=== PATIENT | male | born 1975 | race Caucasian/White ===

== ENCOUNTER 2019-10-27 12:12 | Emergency (ER) | payer OTHER, SELFPAY ==
[2019-10-27 12:40] VITALS: BP 158/89; PULSE 79; RESP 16; TEMP 36.6; O2SAT 97; BMI 38.6
== END 2019-10-27 13:07 | disposition left against medical advice (07) ==
LOC: ER 12:32
PROVIDERS: Emergency Provider Emergency Medicine
DX: Z53.21 Procedure and treatment not carried out due to patient leaving prior to being seen by health care provider (principal)
CPT/HCPCS: 99281

== ENCOUNTER 2021-01-08 11:45 | Emergency (ER) | payer OTHER, SELFPAY ==
[2021-01-08] VITALS (7 sets, daily range): BP systolic 147–180; BP diastolic 99–111; PULSE 66–70; RESP 14–18; O2SAT 22–97; BMI 39.9
--- NOTE | 2021-01-08 12:27 | XRR_ITS ---
PROCEDURE INFORMATION: Exam: XR Right Ribs with PA Chest Exam date and time: 01/08/2021 1:25 PM Age: 45 years old Clinical indication: Pain; Other: RT ribs; Additional info: Rib pain right TECHNIQUE: Imaging protocol: XR Right ribs with PA chest. Views: 3 views COMPARISON: No relevant prior studies available. FINDINGS: Lungs: Unremarkable. No consolidation. Pleural spaces: Unremarkable. No pleural effusion. No pneumothorax. Heart/Mediastinum: Unremarkable. No cardiomegaly. Bones/joints: Unremarkable. XR/XR ribs RT mn 3V w CXR1V [id number] IMPRESSION: No acute findings.
--- NOTE | 2021-01-08 12:31 | W.ED.GENADLT ---
HPI - General Adult General: Chief complaint: General Medical Stated complaint: COUGHED, FELT POP IN R SIDE Time Seen by Provider: 01/08/21 12:21 History of Present Illness: HPI narrative: The patient is a 45-year-old male with past medical history COPD who comes to the ER complaining of right lower rib pain after he coughed this morning. He says he has been having slight pain there over the past week and went to the [facility] where they took x-rays and he has no results. This morning he had his normal COPD/smoker cough and heard a loud pop in the area he is having pain and now complains of severe pain to the area. He has been taking Tylenol and ibuprofen. Onset (ago): week(s) (1) Radiation: non-radiation Severity: moderate Quality: sharp Pain Consistency: constant Relieving factors: none Exacerbating factors: other (Deep breaths and coughing) Associated symptoms: Reports cough (Chronic COPD cough); Deny chest pain, confusion, dyspnea, headache(s), rash, short of breath or weakness Review of Systems General: Reports: 10 or more systems reviewed and unremarkable except in HPI and below Const: Denies: fatigue Eyes: Denies: change in vision, blurry vision or eye redness ENMT: Denies: throat pain, swelling of lips/tongue, ear or mastoid pain or nasal congestion Card: Denies: chest pain Resp: Denies: dyspnea GI: Denies: abdominal pain, diarrhea or GI cramping : Denies: flank pain, urinary frequency or urinary urgency Musc: Denies: neck pain, back pain, extremity pain, joint pain, joint redness, limited range of motion or muscle weakness Skin/Breast: Denies: rash, pruritus, erythema, skin pain or skin tenderness Neuro: Denies: headache(s), numbness in extremities, weakness in extremities, sensory changes, difficulty walking, dizziness, confusion or Slurred speech present Psych: Denies: anxiety or depression Endo: Denies: polyuria All/Imm: Denies: urticaria, throat swelling or tongue swelling PFSH ED PFSH: Social History Smoking and tobacco status: former smoker Physical Exam Const: COMMON NORMALS: no acute distress, average body habitus, patient oriented x3, no limitations, healthy appearing, alert and well nourished GENERAL APPEARANCE: cooperative, comfortable, well kempt and well developed ORIENTATION/CONSCIOUSNESS: Yes awake, Yes oriented to person, Yes oriented to place and Yes oriented to time HENMT: COMMON NORMALS: normocephalic, external ears normal and Normal external nose present HEAD & SCALP: normal to inspection and normocephalic NOSE: Normal external nose present EXTERNAL EAR: Yes external ears normal MOUTH: Normal oral and palatal mucosa present THROAT: posterior oropharynx normal Eye: COMMON NORMALS: Equal, round and reactive pupils present and EOMs intact bilaterally GENERAL EYE: appearance normal, both eyes and all related structures PUPIL: Yes Equal, round and reactive pupils present Neck/C-Spine: COMMON NORMALS: full ROM, no lymphadenopathy, no meningeal signs and no JVD GENERAL: Yes normal visual inspection Lymph: LYMPHATIC: no lymphadenopathy noted Chest: COMMONS NORMALS: normal inspection of the chest and normal palpation of entire chest wall Chest images (male): 1. Tenderness to area of right 10th rib and surrounding musculature. Resp: COMMON NORMALS: normal respiratory effort, No retractions, No use of accessory muscles, clear to auscultation bilaterally and percussion normal EFFORT & INSPECTION: Yes able to speak in complete sentences AUSCULTATION: clear to auscultation bilaterally PERCUSSION: percussion normal Cardio: COMMON NORMALS: no JVD, regular rate, regular rhythm, S1 normal heart sound present, S2 normal heart sound present and Peripheral pulses 2+ throughout RATE: regular rate RHYTHM: regular rhythm HEART SOUNDS: S1 normal heart sound present and S2 normal heart sound present PERIPHERAL PULSES: Peripheral pulses 2+ throughout GI: COMMON NORMALS: Normal to inspection, nondistended, normoactive bowel sounds present, Soft to palpation, non-tender and no masses INSPECTION: Yes normal to inspection PALPATION: Yes Soft to palpation : COMMON NORMALS: Yes no CVA tenderness BLADDER/KIDNEY EXAM: Yes no CVA tenderness Back/Pelvis: COMMON NORMALS: no CVA tenderness, thoracic and lumbar spine normal to inspection, no thoracic nor lumbar tenderness and thoraco-lumbar ROM normal Extremity: COMMON NORMALS: normal to inspection, full ROM, capillary refill normal, no joint enlargement and no pedal edema GENERAL: Yes normal exam except as noted Neuro: COMMON NORMALS: patient oriented x3, CN's II-XII intact bilaterally, moves all extremities, no focal motor deficits, no sensory deficits noted and gait normal SENSORIUM/ORIENTATION: Yes alert, Yes oriented to person, Yes oriented to place and Yes oriented to time MENINGEAL SIGNS: Yes no meningeal signs Psych: COMMON NORMALS: mental status grossly normal, Normal thought process present, cooperative, normal affect and speech normal APPEARANCE: Yes well kempt ATTITUDE: Yes calm SPEECH: Yes normal speech THOUGHT PROCESS: Normal thought process present Skin: COMMON NORMALS: no rashes or lesions noted GENERAL SKIN EXAM: no rashes or lesions noted Course Vital Signs: Vital signs: Vital Signs Pulse Rate 70 01/08/21 14:30 Respiratory Rate 14 01/08/21 14:30 Blood Pressure 147/99 01/08/21 14:30 Pulse Oximetry 97 01/08/21 14:30 MDM - General Adult MDM Narrative: Medical decision making narrative: Patient likely has a muscle strain from his chronic coughing related to smoking and COPD. X-rays are negative for fracture. Okay to discharge with Flexeril. Follow-up with primary care physician in 1 week. ER with worsening symptoms Discharge Plan Discharge Patient Disposition: Home Clinical Impression: Muscle strain Condition: Stable Prescriptions: New cyclobenzaprine 5 mg tablet 5 mg PO TID PRN (Reason: muscle spasm) Qty: 12 RF: 0 No Action metoprolol tartrate 50 mg Tablet 25 mg PO BID RF: 0 nicotine 21 mg/24 hr Patch 24 Hour 1 patch TRANSDERMAL DAILY RF: 0 albuterol sulfate 90 mcg/actuation Hfa Aerosol Inhaler 2 puff INHALATION QID PRN (Reason: COPD) RF: 0 Charity 1 tab PO DAILY PRN (Reason: Allergy Symptoms) RF: 0 Tylenol 325 mg Tablet 325 - 650 mg PO Q6H PRN (Reason: PAIN/HEADACHE) RF: 0 ibuprofen 200 mg Tablet 200 mg PO Q6H PRN (Reason: PAIN/HEADACHE) RF: 0 Discharge Orders: Discharge ED (Routine); Ordered 01/08/21 Ordered By: Maximo Gonzalez Referrals: Dot Dai FNP [Primary Care Provider] - Discharge Diet: Advance as tolerated Discharge Activity: Resume usual activity Patient Instructions: Musculoskeletal Pain (ED), Opioid Safety Activity Restrictions/Additional Instructions: You are likely having muscular pain from coughing. Please take the muscle relaxer as needed to help with your pain. Do not mix it with drugs, alcohol, nor operate machinery while taking it. If you take it before bedtime it may help you sleep. Also continue to take Tylenol at home to help with your pain. Return to the ER with worsening symptoms otherwise follow-up with your primary care physician this week. Coding Level of Care Code ED Power Screwdriver Operator for Chuck Fwd Exam Comprehensive
[2021-01-08] MEDS: orphenadrine 30 mg/mL Inj 2 mL 60 MG IM (12:35)
[2021-01-08] MEDS: albuterol 8 gm MDI 2 PUFF INHALATION (12:56)
== END 2021-01-08 15:35 | disposition home or self-care (01) ==
LOC: ER 12:28
PROVIDERS: Emergency Provider Family Medicine; PCP Nurse Practitioner
DX: S39.011A Strain of muscle, fascia and tendon of abdomen, initial encounter (principal); X50.9XXA Other and unspecified overexertion or strenuous movements or postures, initial encounter; Z87.891 Personal history of nicotine dependence
CPT/HCPCS: 71101; 94640; 96372; 99283; J2360; J3535

== ENCOUNTER 2022-06-23 09:33 | Emergency (ER) | payer OTHER, SELFPAY ==
[2022-06-23 09:39] VITALS: BP 143/84; PULSE 81; RESP 18; TEMP 36.7; O2SAT 96; BMI 35.2
--- NOTE | 2022-06-23 09:57 | XRR_ITS ---
PROCEDURE INFORMATION: Exam: XR Right Ankle Exam date and time: 06/23/2022 10:12 AM Age: 46 years old Clinical indication: Injury or trauma; Fall; Blunt trauma; Ankle; Right TECHNIQUE: Imaging protocol: Radiologic exam of the Right ankle. Views: 3 or more views. COMPARISON: No relevant prior studies available. FINDINGS: Bones/joints: There is transverse displaced fracture of the medial malleolus. There is longitudinal displaced fracture of the posterior malleolus. The lateral malleolus appears intact the potential for a proximal fibular fracture should be ruled out. Soft tissues: Soft tissue edema is seen in the medial aspect of the ankle XR/XR ankle RT min 3V* [id number] IMPRESSION: 1. Transverse displaced fracture of the medial malleolus. 2. Longitudinal displaced fracture posterior malleolus 3. Rule out proximal fibular fracture 4. Soft tissue edema medial ankle
--- NOTE | 2022-06-23 09:58 | W.ED.EXTPRO ---
HPI - Extremity Problem General: Chief complaint: Extremity Injury, Lower Stated complaint: Swollen right feet Time Seen by Provider: 06/23/22 09:54 History of Present Illness: 46 yo male patient presents to ER with right ankle injury. Patient states he twisted his ankle stepping off of porch last night woke up to pain and swelling today. Patient denies any other injury or trauma. Associated symptoms: Deny fever(s) or rash Review of Systems Const: Denies: fever(s) Musc: Reports: extremity pain and extremity swelling Skin/Breast: Denies: rash, pruritus or erythema PFSH ED PFSH: Social History Smoking and tobacco status: former smoker Physical Exam Const: COMMON NORMALS: no acute distress, average body habitus, patient oriented x3, no limitations, healthy appearing, alert and well nourished Cardio: COMMON NORMALS: regular rate and regular rhythm RATE: regular rate RHYTHM: regular rhythm Extremity: RIGHT LOWER EXTREMITY: Yes foot & digits (swelling noted to lateral and medial aspects tender to palpation NVI) Neuro: COMMON NORMALS: patient oriented x3 SENSORIUM/ORIENTATION: Yes alert Course Vital Signs: Vital signs: Vital Signs Temperature 98.0 F 06/23/22 09:39 Pulse Rate 81 06/23/22 09:39 Respiratory Rate 18 06/23/22 09:39 Blood Pressure 143/84 06/23/22 09:39 Pulse Oximetry 96 06/23/22 09:39 Oxygen Delivery Me thod 06/23/22 09:39 MDM - Extremity (Nontraumatic) Medical Decision Making Patient is well appearing non toxic and in no acute distress. there is edema and tenderness to lateral and medial aspects of right ankle. Pt is NVI distally. there is no calf edema or tenderness noted. Will order xray at this time. Pt does have a medial malleoulus fracture. will splint and give crutches and pain meds and have follow up with ortho. pt remains NVI distally post splint application Lab Data Radiology Impressions Ankle X-Ray 06/23/22 09:57 IMPRESSION: 1. Transverse displaced fracture of the medial malleolus. 2. Longitudinal displaced fracture posterior malleolus 3. Rule out proximal fibular fracture 4. Soft tissue edema medial ankle Discharge Plan Discharge Patient Disposition: Home Condition: Stable Prescriptions: No Action metoprolol tartrate 50 mg Tablet 25 mg PO BID nicotine 21 mg/24 hr Patch 24 Hour 1 patch TRANSDERMAL DAILY albuterol sulfate 90 mcg/actuation Hfa Aerosol Inhaler 2 puff INHALATION QID PRN (Reason: COPD) Charity 1 tab PO DAILY PRN (Reason: Allergy Symptoms) Tylenol 325 mg Tablet 325 - 650 mg PO Q6H PRN (Reason: PAIN/HEADACHE) ibuprofen 200 mg Tablet 200 mg PO Q6H PRN (Reason: PAIN/HEADACHE) cyclobenzaprine 5 mg tablet 5 mg PO TID PRN (Reason: muscle spasm) Qty: 12 0RF Discharge Orders: Discharge ED (Routine); Ordered 06/23/22 Ordered By: Ana Paula Mercado Referrals: Dot aDi FNP [Primary Care Provider] - Discharge Diet: Advance as tolerated Discharge Activity: Use walker/crutches as instructed Patient Instructions: Opioid Safety Activity Restrictions/Additional Instructions: Please no weight bearing and use crutches Please no driving or operating heavy machinery while taking norco Please follow up with Ortho, we will call with appointment information Rest, Ice and elevate extremity Return to ER with any worsening of symptoms Coding Level of Care Code ED Sr. Pricing Analyst for Chuck Fwabilio Exam Expanded Problem Focused
[2022-06-23] MEDS: HYDROcodone-acetaminophen 5-325 mg Tablet 2 TAB PO (10:42)
[2022-06-23 11:33] VITALS: BP 145/78; PULSE 85; RESP 14; O2SAT 98
--- NOTE | 2022-06-26 12:41 | DCPLANNER ---
Addendum entered by Janell Alejandro 06/28/22 07:42: Patient had a follow up appointment scheduled for 06.27.[address] Parr at ortho - patient did attend appointment. Original Note: marina manager had message to schedule a follow up appointment for patient with ortho. marina manager sent patients information to the front office staff at ortho. Patients information will be printed and reviewed. Clinic will call patient with appointment information.
== END 2022-06-23 11:37 | disposition home or self-care (01) ==
PROVIDERS: Emergency Provider Registered Nurse; PCP Nurse Practitioner
DX: S82.51XA Displaced fracture of medial malleolus of right tibia, initial encounter for closed fracture (principal); Z87.891 Personal history of nicotine dependence; X50.1XXA Overexertion from prolonged static or awkward postures, initial encounter
CPT/HCPCS: 73610; 99283; E0114

== ENCOUNTER → 2022-06-27 15:16 | Outpatient (BNVA) | payer OTHER, SELFPAY | PROVIDERS: PCP Nurse Practitioner; Referring Provider Registered Nurse; Visit Provider Specialist | DX: S82.851A Displaced trimalleolar fracture of right lower leg, initial encounter for closed fracture (principal); S93.431A Sprain of tibiofibular ligament of right ankle, initial encounter; X58.XXXA Exposure to other specified factors, initial encounter | CPT/HCPCS: 73590; 73610; 99204 ==

== ENCOUNTER → 2022-07-02 11:39 | Outpatient (BNVA) | payer OTHER, SELFPAY | PROVIDERS: PCP Nurse Practitioner; Visit Provider Specialist | DX: X58.XXXA Exposure to other specified factors, initial encounter (principal); S82.851A Displaced trimalleolar fracture of right lower leg, initial encounter for closed fracture; S93.431A Sprain of tibiofibular ligament of right ankle, initial encounter | CPT/HCPCS: 73610 ==

== ENCOUNTER 2022-07-02 14:54 | Outpatient (CLI) | payer OTHER, SELFPAY | END 2022-07-02 14:55 | disposition home or self-care (01) | LOC: SPT 14:54 | PROVIDERS: PCP Nurse Practitioner; Visit Provider Specialist | DX: S82.851D Displaced trimalleolar fracture of right lower leg, subsequent encounter for closed fracture with routine healing (principal); X58.XXXD Exposure to other specified factors, subsequent encounter | CPT/HCPCS: 97760; 99214; L4361 ==

== ENCOUNTER → 2022-07-03 12:04 | Day surgery (SDC) | payer OTHER, SELFPAY ==
[2022-07-02 18:19] VITALS: BMI 35.9
[2022-07-03] VITALS (11 sets, daily range): BP systolic 131–156; BP diastolic 85–93; PULSE 60–73; RESP 12–19; TEMP 36.6–36.8; O2SAT 93–99
--- NOTE | 2022-07-03 | XR_ITS ---
WS: [id number] XR ankle RT 2V [id number] REASON FOR EXAM: orif right ankle with stress views FINDINGS: Intraoperative images demonstrate plate and screw fixation of transverse medial malleolar fracture. Fracture fragments and surgical appliances are in proper position and alignment. The stress view does not reveal a lateral ankle instability. XR/XR ankle RT 2V [id number] IMPRESSION: Fixation of medial malleolar fracture without abnormality.
--- NOTE | 2022-07-03 | SCC_ITS ---
Procedure done: Open reduction internal fixation right medial malleolar fragment with no fixation of posterior malleolar fracture. 36.9 seconds of fluoroscopic guidance, for a cumulative dose of 1.11 mGy, was provided to Dr. Parr by the radiology department. C-arm images of the RIGHT ankle were saved for the patient's permanent record. [facility]
--- NOTE | 2022-07-03 12:45 | P.ANESASSM_ITS ---
Pre-Anesthetic Assessment Height/Weight: Height 1.83 m Weight 120.202 kg Temp Pulse Resp BP Pulse Ox O2 Del Method 97.9 F 60 16 131/93 96 07/03/22 12:43 07/03/22 12:43 07/03/22 12:43 07/03/22 12:43 07/03/22 12:43 07/03/22 12:43 Preop Diagnosis: Trimalleolar right ankle fracture with syndesmotic disruption Operation Date: 07/03/22 14:05 Proposed Procedures p OPEN REDUCTION INTERNAL FIXATION RIGHT TRIMALLELOUR FRACTURE WITH POSSIBLE SYNDOSMATIC FIXATION 37702 [id number],S82.491B(Right) - Natividad Parr MD Familial anesthetic complications: none Was Beta Tarik taken within 24 hours: N/A Was Clonidine taken within 24 hours: N/A Last intake: 07/02/22 Social Tobacco and No alcohol Exam alert, oriented x 3, clear to auscultation bilaterally and regular rate & rhythm Airway Submandibular: within normal limits Cervical ROM: within normal limits Mallampati: Class III Comments: Comments: Missing multiple teeth Pulmonary Sleep Apnea CV/HEM Coronary Artery Disease (S/P 1 stent over 10 years ago ) and Myocardial Infarction Able to go up 3 flights of stairs w/o CP or SOB None reported Hepatic None reported GI None reported Metabolic None reported Musc/skel Osteoarthritis/DJD Right ankle syndesmotic disruption Neuropsych None reported Anesthetic Plan ASA status: 3 Anesthesia: Anesthesia Evaluation, General and Regional (specify below) (Popliteal and adductor canal blocks) Other: We discussed risk and benefits of general anesthesia including PONV, sore throat (sometimes severe), corneal abrasion, positioning and peripheral nerve injuries, life threatening allergic reaction, post operative ICU admission requiring prolonged intubation, aspiration, stroke, heart attack, , and rare incidences of recall. Patient consents to proceed with general anesthesia. We discussed risk and benefits of nerve block for post op pain control including management of pain and titration of pain medications as signs/symptoms of nerve block wearing off begin to appear and/or prior bed. We discussed risk of failed nerve block, vascular injury or other vital structure injury, abscess/infection, LAST, and nerve injury. Discussed nerve block with Doctor Parr who felt the risk of compartment sy ndrome was low. Plan general with popliteal and adductor canal blocks for post op pain control. Risk of > 500 ml blood loss (7ml/kg in children): No Medications/Allergies Home Medications Medication Instructions Recorded Confirmed Last Taken Type Charity 1 tab PO DAILY PRN Allergy Symptoms 01/08/21 07/03/22 06/30/22 History acetaminophen 325 mg tablet 325 - 650 mg PO Q6H PRN 01/08/21 07/03/22 07/02/22 History (Tylenol) PAIN/HEADACHE albuterol sulfate 90 mcg/actuation 2 puff inhalation QID PRN COPD 01/08/21 07/03/22 07/02/22 20:00 History aerosol inhaler ibuprofen 200 mg tablet 200 mg PO Q6H PRN PAIN/HEADACHE 01/08/21 07/03/22 07/02/22 22:00 History metoprolol tartrate 50 mg tablet 25 mg PO BID 01/08/21 07/03/22 07/03/22 09:00 History nicotine 21 mg/24 hr daily 1 patch transdermal DAILY PRN 01/08/21 07/02/22 Unknown History transdermal patch Agitation Walking Cam Boot #1 ea 07/02/22 07/02/22 Unknown Rx atorvastatin 20 mg tablet 20 mg PO DAILY 07/02/22 07/03/22 07/02/22 History tramadol 50 mg tablet 50 mg PO TID PRN Pain 07/02/22 07/03/22 07/02/22 22:00 History Allergies Allergy/AdvReac Type Severity Reaction Status Date / Time morphine Allergy ADR-Itching Verified 07/02/22 18:14 [facility] Anesthesia Social History Smoking and tobacco status: current every day smoker Data Anesthesia Cardiac Studies: No Data to Display
[2022-07-03] MEDS: sodium chloride 0.9% 1,000 ML 30 ML IV (13:25)
[2022-07-03] MEDS: gabapentin 300 mg Capsule 600 MG PO (13:30)
[2022-07-03] MEDS: CELEcoxib 200 mg Capsule 400 MG PO (13:30)
[2022-07-03] MEDS: fentaNYL 50 mcg/mL INJ 2mL IVP (13:40)
[2022-07-03] MEDS: acetaminophen 1,000 MG/100 ML PIGGYBACK 400 MG IV (14:05)
[2022-07-03] MEDS: ipratropium-albuterol 3 mL Neb INHALATION (14:05)
--- NOTE | 2022-07-03 14:23 | SUR.PREOP ---
13:40 placed on O2, and monitor. time out done. IV PAIN MED GIVEN . NERVE BLOCK PERFORMED. PATIENT TOLERATED WELL.
--- NOTE | 2022-07-03 14:31 | P.HPUD_ITS ---
Surgery/Procedure H&P Update DATE OF PROCEDURE: July 03, 2022 DATE H&P PERFORMED: 07/02/22 H&P UPDATE INFORMATION: I have reviewed H&P completed within last 30 days, I have examined patient prior to procedure, No changes to prior documentation and H&P is in [facility] EMR on date indicated PREOP DIAGNOSIS: Trimalleolar right ankle fracture with syndesmotic disruption PLANNED PROCEDURE: Operation Date: 07/03/22 14:05 Proposed Procedures p OPEN REDUCTION INTERNAL FIXATION RIGHT TRIMALLELOUR FRACTURE WITH POSSIBLE SYNDOSMATIC FIXATION 54465 [id number],S82.853B(Right) - Natividad Parr MD Related Problem List Diagnoses (1) Trimalleolar fracture of right ankle: Qualifiers: Encounter type: initial encounter Fracture type: closed Qualified Code(s): S82.851A - Displaced trimalleolar fracture of right lower leg, initial encounter for closed fracture (2) Syndesmotic disruption of right ankle: Qualifiers: Encounter type: initial encounter Qualified Code(s): S93.431A - Sprain of tibiofibular ligament of right ankle, initial encounter
[2022-07-03] MEDS: ceFAZolin 2,000 MG in sodium chloride 0.9% (plus) 50 ML 100 MG IV (14:44)
[2022-07-03] MEDS: ceFAZolin 1,000 mg SDV 1000 MG IRRIGATION (15:44)
--- NOTE | 2022-07-03 15:47 | ANES.PROC ---
Anesthesia Procedures Procedure/Date: 07/03/22 Nerve Block ^: Nerve Block 1: Main Anesthesia: general anesthesia Time Out Performed: Yes Consent: requested by attending/covering physician, from patient, risks and benefits reviewed and patient agrees to proceed Nerve block location: popliteal Anesthesia monitors applied: pulse oximetry, EKG, BP cuff and oxygen Nerve block position: semi sitting Anesthetic Used: ropivicaine 0.5% Amount of anesthesia used (mL): 20 Ultrasound used to: recognize landmarks and other (visualize and ID popliteal nerve) Nerve Stimulator Used?: No Interscalene/Femoral BLK: 4 stimuplex 21 g needle used for position and inplane approach, visualize local anesthetic spread and no vascular puncture identified Injection: neg aspiration of heme Patient Tolerated Procedure: well Complications: none Additional Comments: After time out sterile prep, using sterile technique, and using real time US guidance for target selection needle was inserted with real time visualization of needle entry and real time visualization of needle advancement toward intended target. Negative aspiration. LA injected incrementally with negative aspiration every 5 cc and real time US visualization of LA spread throughout procedure. Tolerated well. Image(s) saved. Nerve Block 2: Main Anesthesia: general anesthesia Time Out Performed: Yes Consent: requested by attending/covering physician, from patient, risks and benefits reviewed and patient agrees to proceed Nerve block location: adductor canal Anesthesia monitors applied: pulse oximetry, EKG, BP cuff and oxygen Nerve block position: supine Anesthetic Used: ropivicaine 0.5% Amount of anesthesia used (mL): 15 Ultrasound used to: recognize landmarks and visualize and ID femerol nerve Nerve Stimulator Used?: No Interscalene/Femoral BLK: 4 stimuplex 21 g needle used for position and inplane approach, visualize local anesthetic spread and no vascular puncture identified Injection: neg aspiration of heme Patient Tolerated Procedure: well Complications: none Additional Comments: After time out sterile prep, using sterile technique, and using real time US guidance for target selection needle was inserted with real time visualization of needle entry and real time visualization of needle advancement toward intended target. Negative aspiration. LA injected incrementally with negative aspiration every 5 cc and real time US visualization of LA spread throughout procedure. Tolerated well. Image(s) saved.
--- NOTE | 2022-07-03 16:45 | P.OP_ITS ---
Operative Report Date of procedure: July 03, 2022 Pre-op diagnosis: Trimalleolar right ankle fracture Post-op diagnosis: Bimalleolar right ankle fracture Post-op findings: Displaced right medial malleolar ankle fracture without syndesmotic disruption, but with posterior malleolar fracture, stress testing of syndesmotic ligament negative Procedure done: Open reduction internal fixation right medial malleolar fragment with no fixation of posterior malleolar fracture. Implants: The Trubates large short plate with a combination of locking and nonlocking screws. Specimens removed/disposition: None Surgeon: Natividad Parr Assistant Loan Processor: [facility] operating room technicians Anesthesia: General (Per LMA, ASA 2) Estimated blood loss (mL): 2 Tourniquet time (min): 58 (At 250 mmHg) IV fluids (mL): 400 Urine output (mL): 0 (No Zambrano) Complications: None Findings: Displaced medial malleolar fragment with interposed periosteum, posterior malleolar fracture which reduced nicely. Negative stress test to syndesmotic ligament. No obvious unstable distal fibula fracture. Condition: stable Disposition: PACU (Then to same-day surgery for discharge home with family.) Brief History: This is a 46 year old male patient who presented to my office with a medial malleolar fracture with displacement and apparent mortise widening. He returned after his first visit to the office as he was quite swollen, and then he was prepared for surgical intervention as the swelling had diminished. DOI: 06/22/2022. Patient presented to the E.R. the following day. Patient had xrays taken and was placed in a splint. Patient informed to utilize crutches and not to bear weight on the ankle. Patient states that he has been walking on the ankle initially, but after we met the first time, he became nonweightbearing. He was scheduled for surgical intervention. Questions were answered and consents were signed preoperatively. Procedure: Patient was seen in the preoperative holding area and leg was marked. Patient was brought to the operating theater and placed on the operating room table. After undergoing adequate general anesthesia per LMA, ASA 2, the patient's right lower extremity was prepped and draped in usual fashion utilizing DuraPrep. The leg was draped free. Fluoroscopy was used throughout the surgical procedure. We had a tourniquet high on the right lower extremity. This was elevated to 250 mmHg and total tourniquet time was 58 minutes. Tourniquet elevation followed exsanguination of the leg. A surgical pause was performed. At the time of the surgical pause we identified the site and side of surgery as well as the patient's identity and availability of equipment. We also confirmed appropriate administration of IV antibiotics, Ancef 2 g. Following the above, an incision was made centering over the patient's medial malleolar fracture. The incision was continued proximally and distally about the fracture to allow access for placement of the plate. We were able to reduce the fracture anatomically. This was held with a clamp and the Trubates hook plate was chosen. The plate chosen was a large short plate. The medial malleolar fragment was noted to be quite small. The large short hook plate was impacted into the medial malleolar fragment. There was soft tissue interposition which was not elevated off the medial malleolar fragment because this was attachment of the ligament. Imaging studies demonstrated the plate to be partially off the bone in the area of impaction, but it was very stable and able to be manipulated. Following this, the proximal portion of the plate was attached with standard technique. We used a combination of locking as well as one nonlocking screw. Once the plate was appropriately attached, we irrigated the wound. AP and lateral imaging studies were again obtained. Additionally, stress test was repeated, and there is no evidence of syndesmotic instability. The mortise was felt to be appropriately reestablished. We then closed the wound with 0 Vicryl in the fascial tissues, 2-0 Monocryl in the subcutaneous tissues, and the skin was closed with 3-0 Monocryl subcuticular. This was followed by Dermabond and Prineo, OpSite, sterile soft roll, and an Shawn wrap. The patient will be placed in his Cam Walker boot, and he is advised that he may slowly begin to weight-bear as tolerated with crutches as support in the [facility] wa er only. The procedure was well tolerated without complication. Tourniquet time was 58 minutes at 250 mmHg. The patient will be discharged home to follow- up in my office as scheduled. Related Problem List Diagnoses (1) Trimalleolar fracture of right ankle:
[2022-07-03] MEDS: oxyCODONE 5 mg IR Tab/Cap PO (17:23)
--- NOTE | 2022-07-04 17:05 | ANE.PACU2 ---
Inpatient post-anesthesia follow up: Airway intact: Yes Vital signs: Temperature 97.8 F Pulse Rate 62 Respiratory Rate 18 Blood Pressure 156/90 Pulse Oximetry 95 Oxygen Delivery Me thod Room Air Oxygen Flow Rate 3 Fraction of Inspir ed Oxygen Hydration adequate: Yes Nausea and vomiting: No Pain level: 6 Mental status: Baseline
--- NOTE | 2022-07-04 17:17 | PM.MISC ---
Miscellaneous Note Purpose of Documentation: Attempted to call patient to follow up on experience with anesthesia and block, phone answered, MR. Baez not home.
== END | disposition home or self-care (01) ==
PROVIDERS: PCP Nurse Practitioner; Visit Provider Specialist
PROC: (CPT 27766; principal; 2022-07-03 13:55)
DX: S82.841A Displaced bimalleolar fracture of right lower leg, initial encounter for closed fracture (principal); X58.XXXA Exposure to other specified factors, initial encounter; G47.30 Sleep apnea, unspecified; I25.10 Atherosclerotic heart disease of native coronary artery without angina pectoris; Z95.5 Presence of coronary angioplasty implant and graft; I25.2 Old myocardial infarction; F17.210 Nicotine dependence, cigarettes, uncomplicated
CPT/HCPCS: 27766; 73600; 76000; C1713; J0690; J1100; J2250; J2405; J2704; J2795; J3010; J7030

== ENCOUNTER → 2022-07-18 11:04 | Outpatient (BNVA) | payer OTHER, SELFPAY | PROVIDERS: PCP Nurse Practitioner; Visit Provider Nurse Practitioner Family | DX: Z98.890 Other specified postprocedural states (principal); X58.XXXA Exposure to other specified factors, initial encounter; S82.851A Displaced trimalleolar fracture of right lower leg, initial encounter for closed fracture | CPT/HCPCS: 73610; 99024 ==

== ENCOUNTER → 2022-08-15 09:43 | Outpatient (BNVA) | payer OTHER, SELFPAY | PROVIDERS: PCP Nurse Practitioner; Visit Provider Nurse Practitioner Family | DX: Z98.890 Other specified postprocedural states (principal); S82.851A Displaced trimalleolar fracture of right lower leg, initial encounter for closed fracture; X58.XXXA Exposure to other specified factors, initial encounter | CPT/HCPCS: 73610; 99213 ==

== ENCOUNTER 2022-09-28 11:38 | Emergency (ER) | payer OTHER, SELFPAY ==
[2022-09-28 12:00] VITALS: BP 168/98; PULSE 65; RESP 16; TEMP 36.7; O2SAT 96; BMI 37.3
[2022-09-28 12:12] VITALS: BP 150/82; PULSE 66; RESP 18; O2SAT 97
--- NOTE | 2022-09-28 12:29 | XR_ITS ---
WS: [id number] EXAMINATION: XR thoracic spine 3V* [id number] REASON FOR EXAM: upper back pain, numbness in R hand COMPARISON: None available. ORDER DATE: 09/28/2022 12:41 PM FINDINGS: There is normal vertebral alignment. Marginal osteophytes are present lower thoracic spine with mild disc narrowing. No acute change or compression deformities XR/XR thoracic spine 3V* [id number] IMPRESSION: Minor degenerative change.
--- NOTE | 2022-09-28 12:29 | ED_ITS ---
HPI - Back Pain/Injury General: Chief Complaint: Back Pain/Injury Stated Complaint: Back pain Time Seen by Provider: 09/28/22 12:05 Source: patient Mode of arrival: ambulatory Limitations: no limitations History of Present Illness: 46-year-old male presents to the ER today for right upper back pain and numbness and tingling in the right arm. Patient reports about a week ago he started noticing the pain in the right side of his upper back. Patient reports that in the last couple days he has had increasing numbness and tingling in the right arm. He denies any recent injury. He does report he had a recent lower extremity injury and has been limping on the right side some. He denies ever having had something like this before. Patient ports normal range of motion of the right arm. At home he is taking [id number] meds with minimal relief. Review of Systems General: Reports: 10 or more systems reviewed and unremarkable except in HPI and below PFSH ED PFSH: Social History Smoking and tobacco status: current every day smoker Physical Exam Const: COMMON NORMALS: no acute distress, average body habitus, patient oriented x3, no limitations, healthy appearing, alert and well nourished Neck/C-Spine: COMMON NORMALS: full ROM and no lymphadenopathy CERVICAL SPINE: Yes cervical ROM normal, No Cervical spine tenderness and No Paracervical muscle tenderness Resp: COMMON NORMALS: normal respiratory effort and No retractions EFFORT & INSPECTION: Yes able to speak in complete sentences Cardio: COMMON NORMALS: regular rate and regular rhythm RATE: regular rate RHYTHM: regular rhythm Back/Pelvis: OTHER: Patient has no tenderness along the thoracic spine. There is some mild tenderness to palpation along the rhomboid on the right side. No deformities noted. No swelling noted. Extremity: NARRATIVE EXTREMITY EXAM: Patient has full range of motion of all upper and lower extremities. Neuro: COMMON NORMALS: patient oriented x3 SENSORIUM/ORIENTATION: Yes alert Psych: COMMON NORMALS: mental status grossly normal, Normal thought process present and cooperative THOUGHT PROCESS: Normal thought process present Skin: COMMON NORMALS: no rashes or lesions noted and no wounds GENERAL SKIN EXAM: no rashes or lesions noted Course ED course: Patient presents to the ER today for right upper back pain and numbness and tingling down the right arm. This started about a week ago with no known injury however patient has been limping on the right side due to a lower extremity injury. We will go ahead and get an x-ray of the thoracic spine at this time. Vital Signs: Vital signs: Vital Signs Temperature 98.0 F 09/28/22 12:00 Pulse Rate 66 09/28/22 12:12 Respiratory Rate 18 09/28/22 12:12 Blood Pressure 150/82 09/28/22 12:12 Pulse Oximetry 97 09/28/22 12:12 Oxygen Delivery Me thod 09/28/22 12:12 MDM - Back Pain/Injury Medical Decision Making Thoracic x-ray indicates mild degenerative changes. Discussed findings with patient. We will do an anti-inflammatory, steroid, and muscle relaxer at this time. Recommended topical muscle rub and warm moist heat. If patient's symptoms do not improve in 7 to 10 days I would recommend follow-up with PCP to discuss possibly advanced imaging. For new or worsening symptoms or any neurological deficits, return to the ER. Patient verbalized understanding and was in agreement with the treatment plan. Labs Radiology Impressions Thoracic Spine X-Ray 09/28/22 12:29 IMPRESSION: Minor degenerative change. Critical Care Time Critical Care Time: Critical Care Time: No Discharge Plan Discharge Patient Disposition: Home Clinical Impression: Acute upper back pain Condition: Stable Prescriptions: New methocarbamol 750 mg tablet 750 mg PO Q8H Qty: 21 0RF naproxen 500 mg tablet,delayed release (DR/EC) 500 mg PO BID PRN (Reason: pain) Qty: 20 0RF Medrol (Wilian) 4 mg tablets,dose pack See Rx Instructions .ROUTE .COMPLEX Qty: 21 0RF Rx Instructions: orally per package directions No Action (DME) Walking Cam Boot See Rx Instructions .Route .MEDSUPPLY Qty: 1 0RF Rx Instructions: As directed hydrocodone-acetaminophen 5-325 mg tablet 1 tab PO Q6H PRN (Reason: pain) 5 Days Qty: 20 0RF metoprolol tartrate 50 mg Tablet 25 mg PO BID nicotine 21 mg/24 hr Patch 24 Hour 1 patch TRANSDERMAL DAILY PRN (Reason: Agitation) albuterol sulfate 90 mcg/actuation Hfa Aerosol Inhaler 2 puff INHALATION QID PRN (Reason: COPD) Charity 1 tab PO DAILY PRN (Reason: Allergy Symptoms) acetaminophen [Tylenol] 325 mg Tablet 325 - 650 mg PO Q6H PRN (Reason: PAIN/HEADACHE) ibuprofen 200 mg Tablet 200 mg PO Q6H PRN (Reason: PAIN/HEADACHE) atorvastatin 20 mg Tablet 20 mg PO DAILY tramadol 50 mg Tablet 50 mg PO TID PRN (Reason: Pain) Discharge Orders: Discharge ED (Routine); Ordered 09/28/22 Ordered By: Koki Cardoso Referrals: Dot Dai FNP [Primary Care Provider] - Discharge Diet: Usual diet Discharge Activity: Increase activity as tolerated Patient Instructions: Opioid Safety, Pain Management Activity Restrictions/Additional Instructions: Take Medrol Dosepak, Robaxin, and anti-inflammatory as prescribed. Warm, moist heat recommended. Topical muscle rub recommended. If no improvement in 1 week, follow-up with PCP discuss further imaging. Return to the ER with new or worsening symptoms. Coding Level of Care Code ED Employee Communications Intern for Chuck Fwd Exam Detailed
[2022-09-28 13:15] VITALS: BP 147/95; PULSE 65; RESP 16; O2SAT 96
== END 2022-09-28 13:16 | disposition home or self-care (01) ==
PROVIDERS: Emergency Provider Physician Assistant; PCP Nurse Practitioner
DX: M54.6 Pain in thoracic spine (principal)
CPT/HCPCS: 72072; 99283

== ENCOUNTER 2023-04-11 06:53 | Outpatient (CLI) | payer OTHER, SELFPAY ==
--- NOTE | 2023-04-11 07:15 | MR_ITS ---
WS: [id number] MRI LUMBAR SPINE NONCONTRAST HISTORY: Low back and RIGHT leg pain for one month. COMPARISON: None available. TECHNIQUE: Sagittal and axial multisequence imaging is submitted. Mild straightening of the normal lumbar lordosis. Mild disc desiccation. Very slight anterior wedging of L1. No acute fracture. Conus terminates normally at L1-2 disc level. L1-L2: Normal. L2-L3: Mild facet arthritis. No stenosis. L3-L4: Diffuse annular disc bulging with mild osteophytic ridging. Mild ligamentum flavum and facet a rthritis. Mild central, subarticular recess and foraminal narrowing. L4-L5: Mild annular disc bulging. Shallow LEFT foraminal disc protrusion with annular fissure. Mild o steophytic ridging. There is mild disc contact on the exiting LEFT L4 nerve root. Very minimal encroa chment upon the subarticular recesses. L5-S1: Intermediate signal soft tissue mass posterior to the L5-S1 disc extends over a length of 2.5 cm and transversely by 1.6 cm. There is marked thickening and intermediate signal extending into the RIGHT S1 nerve root. Thecal sac is being significantly deformed. There is an additional RIGHT paracen tral disc protrusion with intermediate signal also. Mild bilateral foraminal stenosis. Paravertebral soft tissues are normal. MR/MR lumbar spine wo con* [id number] IMPRESSION: 1. Moderate-sized intermediate soft tissue mass centered posterior to the L5-S 1 disc space. Inseparable from the nerve roots within the thecal sac with adjac ent soft tissue intermediate signal extending into the RIGHT S1 nerve root. Dif ferential includes nerve sheath tumor such as schwannoma or ependymoma. This co uld be a large extruded disc as there is a component of the adjacent disc which is abnormal signal. Due to its size favor a nerve sheath tumor. Consider follo w-up imaging with IV contrast to further evaluate. 2. Mild central, subarticular recess and foraminal stenosis at L3-4. 3. Shallow LEFT foraminal disc protrusion at L4-5 with minimal contact on the exiting LEFT L4 nerve root.
== END 2023-04-11 06:54 | disposition home or self-care (01) ==
PROVIDERS: PCP Nurse Practitioner; Visit Provider Nurse Practitioner
DX: M48.061 Spinal stenosis, lumbar region without neurogenic claudication (principal); M51.26 Other intervertebral disc displacement, lumbar region
CPT/HCPCS: 72148

== ENCOUNTER → 2023-05-09 10:08 | Outpatient (BNVA) | payer OTHER, SELFPAY | PROVIDERS: PCP Nurse Practitioner; Referring Provider Nurse Practitioner; Visit Provider Anesthesiology Pain Medicine | DX: M48.061 Spinal stenosis, lumbar region without neurogenic claudication (principal); M47.816 Spondylosis without myelopathy or radiculopathy, lumbar region | CPT/HCPCS: 99205; 99215 ==

== ENCOUNTER → 2023-06-06 13:53 | Outpatient (BNVA) | payer OTHER, SELFPAY | PROVIDERS: PCP Nurse Practitioner; Visit Provider Anesthesiology Pain Medicine | DX: M54.16 Radiculopathy, lumbar region (principal) | CPT/HCPCS: 64483; 64484; J1100; J3490 ==

== ENCOUNTER 2023-06-10 08:11 | Outpatient (CLI) | payer OTHER, SELFPAY ==
--- NOTE | 2023-06-10 08:17 | MR_ITS ---
WS: [id number] MRI LUMBAR SPINE WITHOUT AND WITH GADOLINIUM ENHANCEMENT TECHNIQUE: Sagittal T1, T2 and STIR imaging. Axial T1 and T2 imaging. Post gadolinium imaging was obt ained. 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 This was likely due to disc extrusion with blood products which has involuted in the interim. L1-L2: Mild facet arthropathy. Spinal canal and foramen are patent. L2-L3: Mild annular bulging. Mild facet arthropathy. Mild RIGHT and no significant LEFT foraminal narrowing. L3-L4: Mild annular bulging. Mild facet arthropathy. Mild bilateral foraminal narrowing. L4-L5: Mild annular bulging with slight effacement of the ventral thecal sac. Slight narrowing of the subarticular recess. LEFT foraminal protrusion with a small annular fissure and slight contact of th e exiting LEFT L4 nerve root. Mild LEFT foraminal narrowing. RIGHT foramen is patent. Moderate facet arthropathy. L5-S1: Shallow RIGHT subarticular disc protrusion with small annular fissure. Impingement traversing RIGHT S1 nerve root in the subarticular recess. Mild RIGHT foraminal narrowing. Moderate facet arthro chaya. Adrenal glands are normal. Visualized pelvic bony structures: Normal. Paravertebral soft tissues: Normal. IMPRESSION: 1. Previously described soft tissue lesion at the L5-S1 level has essentially resolved and was likel y due to extruded disc with blood products. No residual mass today. 2. Disc bulging L5-S1 with a RIGHT subarticular disc protrusion with an annular tear. This impinges the traversing RIGHT S1 nerve root in the subarticular recess. Mild RIGHT L5-S1 foraminal narrowing. 3. Mild annular bulging L4-5 with slight narrowing of the subarticular recess. LEFT foraminal protru gennaro with small annular fissure contacts the exiting LEFT L4 nerve root. 4. Moderate facet arthropathy L4-L5 and L5-S1. 5. No abnormal gadolinium enhancement.
[2023-06-10] MEDS: gadobenate dimeglumine 20 mL vial IV (09:33)
== END 2023-06-10 08:12 | disposition home or self-care (01) ==
PROVIDERS: PCP Nurse Practitioner; Visit Provider Nurse Practitioner
DX: D36.10 Benign neoplasm of peripheral nerves and autonomic nervous system, unspecified (principal); M51.37 Other intervertebral disc degeneration, lumbosacral region; M48.07 Spinal stenosis, lumbosacral region; M47.817 Spondylosis without myelopathy or radiculopathy, lumbosacral region
CPT/HCPCS: 72158; A9577

== ENCOUNTER → 2023-06-20 12:53 | Outpatient (BNVA) | payer OTHER, SELFPAY | PROVIDERS: PCP Nurse Practitioner; Visit Provider Anesthesiology Pain Medicine | DX: M54.16 Radiculopathy, lumbar region (principal); M47.816 Spondylosis without myelopathy or radiculopathy, lumbar region | CPT/HCPCS: 64483; 64484; J1100; J3490 ==

== ENCOUNTER 2023-09-09 07:59 | Outpatient (CLI) | payer OTHER, SELFPAY ==
--- NOTE | 2023-09-09 | MR_ITS ---
WS: [id number] MRI CERVICAL SPINE NONCONTRAST TECHNIQUE: Sagittal T1, T2 and STIR imaging. Axial T2, gradient, and fiesta imaging. CLINICAL INFORMATION: RT SCAPLUA/THROACIC BACK PAIN COMPARISON: None. FINDINGS: Straightening with slight reversal normal cervical lordosis. Cord signal is normal. Mild congenital c entral canal stenosis C3-C5. C2-C3: Mild disc osteophytic ridging. Mild facet arthropathy. Spinal canal and foramen are patent. C3-C4: Mild disc osteophytic ridging. Moderate facet arthropathy. Mild RIGHT foraminal narrowing. Spi nal canal is patent. C4-C5: Mild osteophytic ridging. Mild facet arthropathy. Mild RIGHT greater than LEFT foraminal narro wing. C5-C6: Disc osteophyte complex with endplate ridging. Moderate RIGHT and mild LEFT bony foraminal andres rowing. Uncovertebral joint hypertrophy. C6-C7: Disc osteophyte complex with endplate ridging. Moderate to severe RIGHT and mild LEFT bony for aminal narrowing. Uncovertebral joint hypertrophy. The spinal canal is patent. C7-T1: Mild disc osteophytic ridging. Mild LEFT and no significant RIGHT foraminal narrowing. Normal posterior nasopharynx and parapharyngeal fat. IMPRESSION: 1. Straightening with slight reversal normal cervical lordosis. 2. Mild congenital central canal stenosis C3-C5. 3. Moderate RIGHT C5-C6 and moderate to severe RIGHT C6-7 bony foraminal narrowing due to disc osteo phytic ridging with uncovertebral joint hypertrophy. 4. Mild to moderate facet arthropathy worse at C3-4, RIGHT C4-C5, RIGHT C5-C6.
== END 2023-09-09 08:00 | disposition home or self-care (01) ==
PROVIDERS: PCP Nurse Practitioner; Visit Provider Nurse Practitioner
DX: M25.511 Pain in right shoulder (principal); M54.6 Pain in thoracic spine; M48.02 Spinal stenosis, cervical region; M25.78 Osteophyte, vertebrae; M47.812 Spondylosis without myelopathy or radiculopathy, cervical region
CPT/HCPCS: 72141

== ENCOUNTER → 2023-09-30 09:19 | Outpatient (BNVA) | payer OTHER, SELFPAY | PROVIDERS: PCP Nurse Practitioner; Visit Provider Anesthesiology Pain Medicine | DX: M47.816 Spondylosis without myelopathy or radiculopathy, lumbar region; M48.07 Spinal stenosis, lumbosacral region; M79.604 Pain in right leg; M48.061 Spinal stenosis, lumbar region without neurogenic claudication | CPT/HCPCS: 99214 ==

== ENCOUNTER → 2023-11-14 14:09 | Outpatient (BNVA) | payer OTHER, SELFPAY | PROVIDERS: PCP Nurse Practitioner; Visit Provider Anesthesiology Pain Medicine | DX: M54.16 Radiculopathy, lumbar region (principal) | CPT/HCPCS: 64483; 64484; J1100; J3490 ==

== ENCOUNTER → 2023-11-28 08:53 | Outpatient (BNVA) | payer OTHER, SELFPAY | PROVIDERS: PCP Nurse Practitioner; Visit Provider Anesthesiology Pain Medicine | DX: M47.816 Spondylosis without myelopathy or radiculopathy, lumbar region; M48.07 Spinal stenosis, lumbosacral region; M47.817 Spondylosis without myelopathy or radiculopathy, lumbosacral region; M51.26 Other intervertebral disc displacement, lumbar region | CPT/HCPCS: 99214 ==

== ENCOUNTER 2024-11-20 10:52 | Emergency (ER) | payer OTHER, SELFPAY ==
[2024-11-20 10:58] VITALS: BP 161/97; PULSE 68; RESP 18; TEMP 36.7; O2SAT 98; BMI 35.2
--- NOTE | 2024-11-20 13:02 | XR_ITS ---
WS: [id number] Exam: XR chest 1V portable [id number] Date/Time of Exam: 11/20/2024 1:03 PM Reason For Exam: sob Comparison 01/08/2021. Lungs are hyperinflated and clear. Cardiomediastinal silhouette appears normal. Mild pleural thickening at the costophrenic angles. Single healed old RIGHT rib fracture. XR/XR chest 1V portable [id number] IMPRESSION: 1. Pulmonary hyperinflation. No acute finding.
--- NOTE | 2024-11-20 13:02 | W.ED.URI ---
HPI - URI/Sore Throat General: Chief Complaint: Upper Respiratory Infection Stated Complaint: sick Time Seen by Provider: 11/20/24 12:44 Source: patient Mode of arrival: ambulatory Limitations: no limitations History of Present Illness: Patient is a 49-year-old male with history of COPD here complaining of feeling sick for over 2 weeks. He initially states he had cough, congestion, runny nose, fevers and body aches. He feels like the symptoms got better and he was well for 4 days before getting ill again. He has been around 2 individuals both of which positive for influenza A. He states he was recently seen in the walk-in clinic and placed on prednisone, Augmentin, Tessalon Perles, guaifenesin. He feels like symptoms were initially improving but now they are back . He states he uses albuterol inhalation for his COPD. He states he has used my puffer over 300 times and it is not helping. Patient arrives in absolutely no acute distress. He is satting normally on room air. Patient is not having any chest pain. Denies lower extremity swelling or weight gain. No PND or orthopnea. MD elicited complaint: cough, nasal congestion and other (sob) Onset (ago): day(s) Consistency: constant Severity: moderate Description of mucous: clear Able to tolerate fluids by mouth: Yes Context: sick contacts (family with influenza A) Associated symptoms: Reports nasal congestion; Deny abdominal pain, chills, chest pain, diarrhea, ear or mastoid pain, fever(s), headache(s), nausea or vomiting Treatments prior to arrival: none Related Data Home Medications Medication Instructions Recorded Confirmed Charity 1 tab PO DAILY PRN Allergy Symptoms 01/08/21 11/28/23 acetaminophen 325 mg tablet 325 - 650 mg PO Q6H PRN 01/08/21 11/28/23 (Tylenol) PAIN/HEADACHE albuterol sulfate 90 mcg/actuation 2 puff inhalation QID PRN COPD 01/08/21 11/28/23 aerosol inhaler ibuprofen 200 mg tablet 200 mg PO Q6H PRN PAIN/HEADACHE 01/08/21 11/28/23 metoprolol tartrate 50 mg tablet 25 mg PO BID 01/08/21 11/28/23 atorvastatin 20 mg tablet 20 mg PO DAILY 07/02/22 11/28/23 baclofen PO 05/09/23 11/28/23 marijuana PO 05/09/23 11/28/23 bupropion HCl 100 mg tablet 100 mg PO BID 11/14/23 11/28/23 Previous Rx's Medication Instructions Recorded naproxen 500 mg tablet,delayed 500 mg PO BID PRN pain #20 tabs 09/28/22 release gabapentin 300 mg capsule 300 mg PO TID pain #90 caps 06/20/23 baclofen 10 mg tablet 10 mg PO BID PRN spasm #60 tabs 09/30/23 oseltamivir 75 mg capsule (Tamiflu) 75 mg PO BID 5 days #10 caps 11/20/24 Allergies Allergy/AdvReac Type Severity Reaction Status Date / Time morphine Allergy ADR-Itching Verified 11/20/24 10:57 Review of Systems Const: Denies: fever(s), chills, body aches, fatigue or malaise ENMT: Reports: nasal congestion; Denies: throat pain, odynophagia, ear or mastoid pain or nasal discharge Card: Reports: dyspnea on exertion; Denies: chest pain, palpitations, irregular heart rhythm, edema, swelling of feet/ankles, lightheadedness, syncope, pre-syncope, orthopnea, leg pain with exertion or acrocyanosis Resp: Reports: dyspnea, non-productive cough and chest congestion; Denies: wheezing GI: Denies: abdominal pain, nausea, vomiting or diarrhea : Denies: flank pain or dysuria Musc: Denies: neck pain, back pain, extremity pain, extremity swelling, joint pain or joint swelling Skin/Breast: Denies: rash Neuro: Denies: headache(s), numbness in extremities, weakness in extremities, sensory changes or dizziness PFS ED PFSH: Social History Smoking and tobacco/nicotine status: current every day tobacco/nicotine user Physical Exam Const: COMMON NORMALS: no acute distress, patient oriented x3, no limitations, alert and well nourished GENERAL APPEARANCE: cooperative NUTRITIONAL APPEARANCE: obese ORIENTATION/CONSCIOUSNESS: Yes awake, Yes oriented to person, Yes oriented to place and Yes oriented to time HENMT: FACE & SINUS: normal facial exam Eye: GENERAL EYE: appearance normal, both eyes and all related structures Neck/C-Spine: GENERAL: Yes normal visual inspection Chest: COMMONS NORMALS: normal inspection of the chest and normal palpation of entire chest wall Resp: COMMON NORMALS: normal respiratory effort and clear to auscultation bilaterally AUSCULTATION: clear to auscultation bilaterally Cardio: COMMON NORMALS: regular rate and regular rhythm RATE: regular rate RHYTHM: regular rhythm Neuro: COMMON NORMALS: patient oriented x3 SENSORIUM/ORIENTATION: Yes alert, Yes oriented to person, Yes oriented to place and Yes oriented to time Course Vital Signs: Vital signs: Vital Signs Temperature 98.0 F 11/20/24 10:58 Pulse Rate 68 11/20/24 10:58 Respiratory Rate 18 11/20/24 10:58 Blood Pressure 161/97 11/20/24 10:58 Pulse Oximetry 98 11/20/24 10:58 MDM - URI/Sore Throat Medical Decision Making Patient clinically appears in no acute distress. His vital signs are stable. He is positive for influenza A. His CXR showing pulmonary hyperinflation consistent with his known COPD. He is requesting Tamiflu. Unknown if he is in the therapeutic window where he is getting get any benefit from this medication as he has been ill for 2 weeks and it sounds like he had mild URI, then improved, and then now ill with influenza. He was made aware side effects and possibility of not benefiting from this medication. He would still like prescribed. Return to ED precautions discussed. Differential Diagnosis Likely upper respiratory infection, sinusitis, viral infection and bronchitis Medical Records I reviewed the patient's medical records. Lab Data I reviewed the patient's lab results. Radiology Impressions Chest X-Ray 11/20/24 13:02 IMPRESSION: 1. Pulmonary hyperinflation. No acute finding. Laboratory Results Coronavirus (PCR) Negative (Negative) 11/20/24 13:15 Influenza A (PCR) Positive (Negative) 11/20/24 13:15 Influenza Type B (PCR) Negative (Negative) 11/20/24 13:15 RSV (PCR) Negative (Negative) 11/20/24 13:15 All radiology interpretation(s) finalized by discharge Discharge Plan Discharge Patient Disposition: Home Clinical Impression: Influenza Condition: Stable Prescriptions: New oseltamivir [Tamiflu] 75 mg capsule 75 mg PO BID 5 Days Qty: 10 0RF No Action baclofen 10 mg tablet 10 mg PO BID PRN (Reason: spasm) Qty: 60 0RF baclofen PO marijuana PO gabapentin 300 mg capsule 300 mg PO TID Qty: 90 0RF bupropion HCl 100 mg tablet 100 mg PO BID metoprolol tartrate 50 mg Tablet 25 mg PO BID albuterol sulfate 90 mcg/actuation Hfa Aerosol Inhaler 2 puff INHALATION QID PRN (Reason: COPD) Charity 1 tab PO DAILY PRN (Reason: Allergy Symptoms) acetaminophen [Tylenol] 325 mg Tablet 325 - 650 mg PO Q6H PRN (Reason: PAIN/HEADACHE) ibuprofen 200 mg Tablet 200 mg PO Q6H PRN (Reason: PAIN/HEADACHE) atorvastatin 20 mg Tablet 20 mg PO DAILY naproxen 500 mg tablet,delayed release (DR/EC) 500 mg PO BID PRN (Reason: pain) Qty: 20 0RF Discharge Orders: Discharge ED (Routine); Ordered 11/20/24 Ordered By: Dayanna Fernandes Referrals: Dot Dai FNP [Primary Care Provider] - Patient Instructions: Influenza (DC) Coding Level of Care Code ED Supervisor [employer] for [employer] Valladares
[2024-11-20 13:54] LABS: Covid PCR NEGATIVE (Negative); Influenza A POSITIVE (Negative); Influenza B NEGATIVE (Negative); Respiratory Syncytial Virus Ce NEGATIVE (Negative)
[2024-11-20] MEDS: methylPREDNISolone sod succ 125 mg/2 mL INJ IM (14:04)
[2024-11-20 14:07] VITALS: BP 155/94; PULSE 65; RESP 18; O2SAT 94
== END 2024-11-20 14:09 | disposition home or self-care (01) ==
PROVIDERS: Emergency Medicine; Emergency Provider Physician Assistant; PCP Nurse Practitioner
DX: J10.1 Influenza due to other identified influenza virus with other respiratory manifestations (principal); Z11.52 Encounter for screening for COVID-19; Z72.0 Tobacco use
CPT/HCPCS: 71045; 87637; 96372; 99284; J2919

== ENCOUNTER → 2024-11-24 10:00 | Outpatient (BNVA) | payer OTHER, SELFPAY | PROVIDERS: PCP Nurse Practitioner; Visit Provider Anesthesiology Pain Medicine | DX: M47.816 Spondylosis without myelopathy or radiculopathy, lumbar region (principal); M48.061 Spinal stenosis, lumbar region without neurogenic claudication | CPT/HCPCS: 99214 ==

== ENCOUNTER → 2025-01-11 10:52 | Outpatient (BNVA) | payer OTHER, SELFPAY | PROVIDERS: PCP Nurse Practitioner; Visit Provider Anesthesiology Pain Medicine | DX: M54.9 Dorsalgia, unspecified (principal); M48.00 Spinal stenosis, site unspecified; M47.816 Spondylosis without myelopathy or radiculopathy, lumbar region; F17.200 Nicotine dependence, unspecified, uncomplicated | CPT/HCPCS: 99214 ==

== ENCOUNTER → 2025-01-13 13:52 | Outpatient (BNVA) | payer OTHER, SELFPAY | PROVIDERS: PCP Nurse Practitioner; Visit Provider Surgery | DX: Z12.11 Encounter for screening for malignant neoplasm of colon (principal) | CPT/HCPCS: 99203 ==

== ENCOUNTER → 2025-01-26 14:03 | Outpatient (BNVA) | payer OTHER, SELFPAY | PROVIDERS: PCP Nurse Practitioner; Visit Provider Anesthesiology Pain Medicine | DX: M54.16 Radiculopathy, lumbar region (principal); M54.9 Dorsalgia, unspecified | CPT/HCPCS: 64483; J1100; J3490; J9999 ==

== ENCOUNTER → 2025-02-09 14:12 | Outpatient (BNVA) | payer OTHER, SELFPAY | PROVIDERS: PCP Nurse Practitioner; Referring Provider Nurse Practitioner; Visit Provider Psychiatry & Neurology Neurology | DX: M79.601 Pain in right arm (principal); M25.511 Pain in right shoulder; M79.631 Pain in right forearm; R29.898 Other symptoms and signs involving the musculoskeletal system; M79.641 Pain in right hand; R20.0 Anesthesia of skin; R20.2 Paresthesia of skin | CPT/HCPCS: 95913 ==

== ENCOUNTER → 2025-02-10 14:17 | Outpatient (BNVA) | payer OTHER, SELFPAY | PROVIDERS: PCP Nurse Practitioner; Visit Provider Nurse Practitioner Family | DX: G89.29 Other chronic pain (principal); M54.41 Lumbago with sciatica, right side; M48.00 Spinal stenosis, site unspecified; M47.816 Spondylosis without myelopathy or radiculopathy, lumbar region | CPT/HCPCS: 99213 ==

== ENCOUNTER 2025-04-08 05:47 | Day surgery (SDC) | payer OTHER, SELFPAY ==
[2025-04-08 06:02] VITALS: BP 129/90; PULSE 66; RESP 18; TEMP 36.2; O2SAT 95; BMI 35.2
[2025-04-08] MEDS: sodium chloride 0.9% 1,000 ML 15 ML IV (06:08)
--- NOTE | 2025-04-08 06:19 | W.PM.OPSFHP ---
Same Day Surgery H&P Indication for Procedure/HPI DATE OF PROCEDURE: April 08, 2025 CHIEF COMPLAINT/INDICATIONFOR SURGICAL PROCEDURE: need for screening colonoscopy PREOP DIAGNOSIS: need for screening colonoscopy PLANNED PROCEDURE: Operation Date: 04/08/25 07:00 Proposed Procedures p Colonoscopy [id number] [id number], Z12.11(Not Applicable) - Francisco Novak MD Medications/Allergies* Home Medications ?Medication ?Instructions ?Recorded ?Confirmed ?Type Charity 1 tab PO DAILY PRN Allergy Symptoms 01/08/21 04/05/25 History acetaminophen 325 mg tablet 1,000 mg PO Q6H PRN PAIN/HEADACHE 01/08/21 04/05/25 History (Tylenol) albuterol sulfate 90 mcg/actuation 2 puff inhalation QID PRN COPD 01/08/21 04/05/25 History aerosol inhaler metoprolol tartrate 50 mg tablet 25 mg PO BID 01/08/21 04/05/25 History marijuana 1 amp inhalation PRN PRN Pain 05/09/23 04/05/25 History diclofenac sodium 75 mg 75 mg PO BID 01/11/25 04/05/25 History tablet,delayed release Allergies/Adverse Reactions Allergy/AdvReac Type Severity Reaction Status Date / Time morphine Allergy ADR-Itching Verified 04/05/25 14:14 Current Medications: Generic Name Dose Route Start Last Admin Trade Name Freq PRN Reason Stop Dose Admin Sodium Chloride 1,000 mls @ 15 mls/hr 04/08/25 05:50 04/08/25 06:08 Sodium Chloride 0.9% IV 04/09/25 05:49 15 mls/hr .Q24H PRN Administration COLONOSCOPY FLUIDS Pertinent History/Comorbid Conditions* Social History Smoking and tobacco/nicotine status: current every day tobacco/nicotine user Pertinent Exam Findings alert, oriented x 3, clear to auscultation bilaterally and regular rate & rhythm Recommendations Surgery/Procedure today Coding Level of Care Code Acute Code for Chg Fwd
[2025-04-08 07:25] VITALS: BP 112/55; PULSE 70; RESP 20; TEMP 36.2; O2SAT 93
--- NOTE | 2025-04-08 07:28 | ANES.PREANE2 ---
Pre-Anesthetic Assessment Height/Weight: Height 1.83 m Weight 117.934 kg Temp Pulse Resp BP Pulse Ox O2 Del Method 97.1 F L 70 20 H 112/55 93 Room Air 04/08/25 07:25 04/08/25 07:25 04/08/25 07:25 04/08/25 07:25 04/08/25 07:25 04/08/25 07:25 Preop Diagnosis: need for screening colonoscopy Operation Date: 04/08/25 07:00 Proposed Procedures p Colonoscopy [id number] G0121, Z12.11(Not Applicable) - Francisco Nvoak MD Familial anesthetic complications: none Was Beta Tarik taken within 24 hours: Yes Was Clonidine taken within 24 hours: N/A Last intake: Intake Last Liquid Date 04/07/25 Last Liquid Time 23:00 Last Solid Date 04/06/25 Last Solid Time 21:00 Social one pack(s) per day Pulmonary COPD, TAMY, compliant with CPAP CV/HEM Hypertension and Myocardial Infarction (stent 17 years ago, denies chest pain, SOB) Hepatic None reported Metabolic None reported Musc/skel None reported Neuropsych None reported Anesthetic Plan ASA status: 3 Anesthesia: MAC Risk of > 500 ml blood loss (7ml/kg in children): No Medications/Allergies Home Medications ?Medication ?Instructions ?Recorded ?Confirmed ?Last Taken ?Type Charity 1 tab PO DAILY PRN Allergy Symptoms 01/08/21 04/05/25 04/05/25 History acetaminophen 325 mg tablet 1,000 mg PO Q6H PRN PAIN/HEADACHE 01/08/21 04/05/25 04/07/25 History (Tylenol) albuterol sulfate 90 mcg/actuation 2 puff inhalation QID PRN COPD 01/08/21 04/05/25 04/07/25 History aerosol inhaler metoprolol tartrate 50 mg tablet 25 mg PO BID 01/08/21 04/05/25 04/08/25 05:45 History marijuana 1 amp inhalation PRN PRN Pain 05/09/23 04/05/25 03/25/25 History baclofen 10 mg tablet 10 mg PO BID PRN spasm #60 tabs 09/30/23 04/05/25 04/07/25 Rx diclofenac sodium 75 mg 75 mg PO BID 01/11/25 04/05/25 04/07/25 History tablet,delayed release Allergies Allergy/AdvReac Type Severity Reaction Status Date / Time morphine Allergy ADR-Itching Verified 04/05/25 14:14 Current Medications Generic Name Dose Route Start Last Admin Trade Name Freq PRN Reason Stop Dose Admin Sodium Chloride 1,000 mls @ 15 mls/hr 04/08/25 05:50 04/08/25 06:08 Sodium Chloride 0.9% IV 04/09/25 05:49 15 mls/hr .Q24H PRN Administration COLONOSCOPY FLUIDS PFSH Anesthesia Social History Smoking and tobacco/nicotine status: current every day tobacco/nicotine user
[2025-04-08 07:42] VITALS: BP 122/71; PULSE 59; RESP 18; O2SAT 94
--- NOTE | 2025-04-08 07:46 | ANE.PACU2 ---
Inpatient post-anesthesia follow up: Airway intact: Yes Vital signs: Temperature 97.1 F Pulse Rate 59 Respiratory Rate 18 Blood Pressure 122/71 Pulse Oximetry 94 Oxygen Delivery Me thod Room Air Oxygen Flow Rate Fraction of Inspir ed Oxygen Hydration adequate: Yes Nausea and vomiting: No Pain level: 1 Mental status: Baseline
== END 2025-04-08 07:46 | disposition home or self-care (01) ==
PROVIDERS: PCP Nurse Practitioner; Visit Provider Surgery
PROC: 0DJD8ZZ Inspection of Lower Intestinal Tract, Via Natural or Artificial Opening Endoscopic (ICD-10-PCS; CPT 45378; principal; 2025-04-08 07:00)
DX: Z12.11 Encounter for screening for malignant neoplasm of colon (principal); K62.1 Rectal polyp; J44.9 Chronic obstructive pulmonary disease, unspecified; G47.33 Obstructive sleep apnea (adult) (pediatric); F17.200 Nicotine dependence, unspecified, uncomplicated; I10 Essential (primary) hypertension; I25.2 Old myocardial infarction; Z95.5 Presence of coronary angioplasty implant and graft; Z79.899 Other long term (current) drug therapy; Z88.5 Allergy status to narcotic agent
CPT/HCPCS: 45385; 88305; J2704; J7030; J9999

== ENCOUNTER → 2025-05-05 14:26 | Outpatient (BNVA) | payer OTHER, SELFPAY | PROVIDERS: PCP Nurse Practitioner; Visit Provider Surgery | DX: Z09 Encounter for follow-up examination after completed treatment for conditions other than malignant neoplasm (principal) | CPT/HCPCS: 99213 ==